=== PATIENT | female | born 1980 | race Caucasian/White ===

== ENCOUNTER 2021-02-24 19:18 | Inpatient (IN) | payer SELFPAY ==
[2021-02-24 19:25] VITALS: BP 120/82; PULSE 108; RESP 16; TEMP 36.5; O2SAT 97; BMI 27.4
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
--- NOTE | 2021-02-24 19:53 | PC.NURSE ---
pt sent her necklace home with her dad.
[2021-02-24 19:59] LABS: Basophils # 0.1 10^3/uL (0.0-0.1); Basophils % 0.9 %; Eosinophils # 0.1 10^3/uL (0.0-0.8); Eosinophils % 0.9 %; Hematocrit 41.6 % (37.0-47.0); Lymphocytes # 2.6 10^3/uL (0.8-4.8); Lymphocytes % 29.8 %; Mean Corpuscular HGB Conc 33.7 g/dL (30.0-36.0); Mean Corpuscular Hemoglobin 32.9 pg (28.0-34.0); Mean Corpuscular Volume 97.9 fL (81-99); Mean Platelet Volume 9.5 fL (7.4-10.4); Monocytes # 0.6 10^3/uL (0.2-0.9); Neutrophils # 5.27 10^3/uL (1.8-7.7); Neutrophils % 61.3 %; Nucleated Red Blood Cells % 0 %; Platelet Count 320 10^3/cmm (130-400); Red Blood Count 4.25 10^6/uL (4.1-5.3); Red Cell Distribution Width 15.5 % (12.1-15.1); White Blood Count 8.6 10^3/uL (4.0-10.0)
[2021-02-24 20:05] LABS: HCG Qualitative Urine. Negative (Negative)
[2021-02-24 20:15] LABS: Amphetamines Screen Urine Negative (Negative); Barbiturates Screen Urine Negative (Negative); Benzodiazepines Screen Urine Negative (Negative); Cocaine Screen Urine Negative (Negative); Opiate Screen Urine Negative (Negative); PCP Screen Urine Negative (Negative); THC Screen Urine Positive (Negative)
[2021-02-24 20:22] LABS: Acetaminophen < 5.0 ug/mL (10-30); Alanine Aminotransferase 15 U/L (0-33); Alcohol Level 281 mg/dL (0-10); Alkaline Phosphatase 72 IU/L (35-105); Anion Gap 13.4 (5-19); Aspartate Amino Transferase 27 U/L (0-32); Blood Urea Nitrogen 5 mg/dL (6-20); Calcium 8.2 mg/dL (8.5-10.5); Carbon Dioxide 25 mmol/L (22-29); Chloride 107 mmol/L (98-107); Creatinine Clr Calc Pharmacy 130.6962; Globulin 3.1 g/dL (1.3-4.6); Glomerular Filtration Rate 110.7 mL/min (90-130); Glucose 77 mg/dL (65-115); Osmolality Calculated 290 mOsm/kg (285-295); Potassium 3.4 mmol/L (3.5-5.1); Salicylate < 0.3 mg/dL (3-10); Sodium 142 mmol/L (136-145); Total Bilirubin 0.2 mg/dL (0.15-1.2); Total Protein 7.1 g/dL (6.6-8.7)
--- NOTE | 2021-02-24 21:11 | PC.NURSE ---
pt report called to Sienna BONNER in SBAR format.
--- NOTE | 2021-02-24 21:26 | PC.NURSE ---
pt's mother took belongings in two bags home. Pratibha in NPU notified
[2021-02-24 21:27] VITALS: BP 122/82; PULSE 93; RESP 18; TEMP 36.8; O2SAT 97
[2021-02-24] MEDS: hyDROXYzine 25 mg Capsule 50 MG PO (21:39)
[2021-02-24] MEDS: trazodone 50 mg Tablet PO (21:44)
[2021-02-24 22:00] VITALS: RESP 16
[2021-02-25 06:00] VITALS: BP 108/69; PULSE 87; RESP 17; TEMP 37.5; O2SAT 95
[2021-02-25] MEDS: multivitamin therapeutic Tablet 1 TAB PO (07:44)
[2021-02-25] MEDS: folic acid 1 mg Tablet PO (07:44)
[2021-02-25] MEDS: thiamine 100 mg Tablet PO (07:44)
[2021-02-25] MEDS: hyDROXYzine 25 mg Capsule 50 MG PO ×2 (11:51→22:00)
--- NOTE | 2021-02-25 11:52 | PC.NURSE ---
PRN VISTARIL 50 MG GIVEN PO PER PT C/O STATED ANXIETY. WILL CONT TO MONITOR.
[2021-02-25] MEDS: nicotine 21 mg Patch 1 PATCH TRANSDERMA (13:05)
[2021-02-25 14:00] VITALS: BP 105/72; PULSE 78; RESP 16; TEMP 36.9; O2SAT 90
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
[2021-02-25 22:00] VITALS: BP 105/72; PULSE 78; RESP 16; TEMP 36.9; O2SAT 98
[2021-02-25] MEDS: trazodone 50 mg Tablet PO (22:00)
--- NOTE | 2021-02-26 04:05 | PC.NURSE ---
Addendum entered by Ivy Awad LPN 02/26/21 04:55: reassessed pt @ 22:38 pt was asleep in bed, will continue to monitor until end of my shift Original Note: prn administered vistaril @ 22:00 for anxiety, administered trazadone 50mg Po for a sleeping aid also at 22:00
[2021-02-26 06:00] VITALS: BP 104/68; PULSE 88; RESP 16; TEMP 36.7; O2SAT 96
[2021-02-26] MEDS: folic acid 1 mg Tablet PO (08:49)
[2021-02-26] MEDS: multivitamin therapeutic Tablet 1 TAB PO (08:49)
[2021-02-26] MEDS: thiamine 100 mg Tablet PO (08:49)
[2021-02-26] MEDS: BuSPIRONE 10 mg Tablet 5 MG PO ×2 (08:49→20:33)
[2021-02-26] MEDS: nicotine 2 mg Gum BUCCAL ×3 (10:53→19:20)
--- NOTE | 2021-02-26 11:38 | PM.NPN ---
Subjective NPU Subjective: Interval history: Stacey presented today reporting that she is doing well compared to when she first came in. She had an opportunity to speak to her significant other and her mother and is really starting to get her bearings back as to what she can do overall. She is feeling more positive about the challenges that her head at her. She reports eating and sleeping better. Mental Status Exam MSE Comments: This is an overweight white female in hospital scrubs with adequate grooming and eye contact. No abnormal movements. Cooperative with exam in no acute distress. Speech was more normal rate and volume. Mood described as a little better , affect congruent. Thought process organized. Thought content: Patient denied suicidal or homicidal ideation, there were no delusions reported or noted, she denied any auditory or visual hallucinations. Attention concentration were intact and memory appeared reliable but none were formally tested. She is alert and oriented x3. Insight and judgment are fair, impulse control is improving. Vitals/I&O/Wt Last Vital Signs Temp 98.5 F 02/26/21 14:00 Pulse 75 02/26/21 14:00 Resp 18 02/26/21 14:00 BP 115/78 02/26/21 14:00 Pulse Ox 97 02/26/21 14:00 Data NPU : 02/24/21 19:49 02/24/21 19:49 A&P Additional A&P Information (1) Anxiety: (2) Partner relational problem: (3) Suicidal ideation: (4) Depression: (5) Adjustment disorder with mixed disturbance of emotions and conduct: (6) Cannabis abuse: (7) Alcohol abuse: Additional A&P Information This is a 40-year-old white female with a long history of trauma and mental health issues with limited treatment who presents with significant psychosocial stressors feeling overwhelmed and is feeling like her prescribed medications are ineffective and that she is unable to manage her current existence. 1. Continue current medication. 2. Continue every 15 minute checks for safety. 3. Encourage individual, group and milieu therapies. 4. Encourage sober living treatment after discharge at the highest level of care to which she is willing to commit. Involuntary Hold Information 96 Hour Hold: 96 Hour Involuntary Admission: No Attestations NPU Medical Necessity Statement*: Inpatient hospitalization is medically necessary and the clinically appropriate intervention at this time. We will monitor medications and make changes as indicated. Likely length of stay 1-3 days. Coding Level of Care Code Acute District Loss Prevention Manager for Gallito Santiago
[2021-02-26 14:00] VITALS: BP 115/78; PULSE 75; RESP 18; TEMP 36.9; O2SAT 97
[2021-02-26] MEDS: CLONazepam 0.5 mg Tablet 0.25 MG PO ×2 (14:44→23:23)
--- NOTE | 2021-02-26 14:44 | PC.NURSE ---
PRN KLONOPIN 0.25 MG GIVEN PO PER PT C/O STATED ANXIETY. WILL CONT TO MONITOR
[2021-02-26] MEDS: hyDROXYzine 25 mg Capsule 50 MG PO (21:01)
[2021-02-26 21:41] VITALS: BP 111/78; PULSE 76; RESP 20; TEMP 36.7; O2SAT 98
--- NOTE | 2021-02-26 21:57 | PC.NURSE ---
prn 21:01 Administered Vistaril 50mg PO for anxiety and also a sleep aid. 21:35 reassessed pt, pt reading laying on bed calm. will continue to monitor until end of my shift
[2021-02-26 22:00] VITALS: BP 111/78; PULSE 82; RESP 17; TEMP 37.1; O2SAT 98
--- NOTE | 2021-02-26 23:25 | PC.NURSE ---
PRN \Klonipin 0.25 mg po given for anxiety.
[2021-02-27 05:46] VITALS: BP 97/69; PULSE 60; RESP 16; TEMP 36.5; O2SAT 99
[2021-02-27] MEDS: folic acid 1 mg Tablet PO (08:33)
[2021-02-27] MEDS: BuSPIRONE 10 mg Tablet 5 MG PO (08:33)
[2021-02-27] MEDS: thiamine 100 mg Tablet PO (08:33)
[2021-02-27] MEDS: multivitamin therapeutic Tablet 1 TAB PO (08:33)
[2021-02-27] MEDS: nicotine 2 mg Gum BUCCAL (09:33)
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
[2021-02-27 10:08] VITALS: BP 97/69; PULSE 60; RESP 16; TEMP 36.5; O2SAT 99
== END 2021-02-27 11:05 | disposition home or self-care (01) | DRG 882 ==
LOC: ER 20:01 → NP 21:00
PROVIDERS: Admitting Provider Psychiatry & Neurology Psychiatry; Emergency Provider Emergency Medicine; PCP Family Medicine; Visit Provider Psychiatry & Neurology Psychiatry
DX: F43.25 Adjustment disorder with mixed disturbance of emotions and conduct (principal); R45.851 Suicidal ideations; F32.9 Major depressive disorder, single episode, unspecified; Z63.0 Problems in relationship with spouse or partner; F12.10 Cannabis abuse, uncomplicated; F10.10 Alcohol abuse, uncomplicated; F41.9 Anxiety disorder, unspecified; F17.210 Nicotine dependence, cigarettes, uncomplicated; Z81.8 Family history of other mental and behavioral disorders
CPT/HCPCS: 80053; 80306; 80307; 81025; 85025; 99285

== ENCOUNTER 2021-06-10 10:30 | Inpatient (IN) | payer SELFPAY ==
[2021-06-10 10:36] VITALS: BP 90/66; RESP 16; TEMP 36.9; O2SAT 98; BMI 26.6
--- NOTE | 2021-06-10 10:55 | W.ED.PSYCH ---
HPI - Psych General: Chief Complaint: Psychiatric Symptoms Stated Complaint: suicidal, homicidal Time Seen by Provider: 06/10/21 10:33 History of Present Illness: HPI Narrative: Ms. Aguirre is a 41-year-old lady with significant past medical history of depression and anxiety presents the emergency department due to suicidal ideation. She reports significantly increased social stressors including finding out that her has had a long-term affair. She has 3 children including one with complex medical care requirements. She has previously been hospitalized for suicidal ideation. She does have a history of suicide attempt by overdose and cutting wrists. Her current plan is to hang herself. Additionally she reports taking 0.5 tablets of Seroquel which she has not taken before. She has multiple medications prescribed however as she has not been able to get an appointment at [facility] she has been rationing . She reports associated fatigue and anxiety. Overall the course of symptoms has been worsening. The intensity is moderate to severe. She denies other new medical complaints, as such no exacerbating relieving factors identified. Review of Systems General: Reports: 10 or more systems reviewed and unremarkable except in HPI and below Narrative: CONSTITUTIONAL: denies fever, positive for generalized fatigue EYES - denies pain, denies loss of vision EARS - denies ear issues. NOSE - denies congestion or rhinorrhea. THROAT - denies sore throat or difficulty swallowing. CARDIOVASCULAR - denies chest pain and palpitations RESPIRATORY - denies shortness of breath and cough GASTROINTESTINAL - denies abdominal pain, no nausea vomiting, no changes in bowel habits GENITOURINARY - denies dysuria or urinary frequency MUSCULOSKELETAL- denies deformity or pain SKIN - denies rashes or new changed skin lesions NEUROLOGIC - denies focal weakness or sensory changes HEMATOLOGIC/LYMPHATIC - denies easy bruising or lymphadenopathy. PSYCH - .see HPI [facility] ED PFSH: Medical History (Updated 06/12/21 @ 07:19 by Jay Harvey MD) Adjustment disorder with mixed disturbance of emotions and conduct Female Reproductive History: Date of last menstrual period: 02/21/21 Physical Exam Narrative: EXAM NARRATIVE: GENERAL/CONSTITUTIONAL - well-appearing. No acute distress. Somewhat somnolent Eyes - PERRL, no conjunctival injection ENMT - Atraumatic external nose and ears. Moist mucous membranes NECK - supple. trachea midline CARDIOVASCULAR - regular rate and rhythm. Peripheral pulses 2+ and equal RESPIRATORY -clear to auscultation bilaterally. No retractions or accessory muscle use. ABDOMEN/GI - Nontender/Nondistended. No tenderness to percussion or evidence of peritonitis MSK - Extremities without obvious deformity or tenderness to palpation SKIN - Warm, Dry NEURO - alert and appropriately oriented. strength and sensation intact. Moves all extremities equally. PSYCH -depressed mood and affect. Course ED course: - Patient was seen and evaluated by me at bedside - Patient placed on cardiac monitors, IV access obtained - Initial evaluation notable for no acute distress, nontoxic appearance. Somewhat somnolent - Labs notable for no significant abnormality requiring intervention, alcohol level elevated. - Upon serial reexamination after treatment the patient was similar - Based on patient history, evaluation, labs, and imaging as interpreted the most likely cause of the patient's condition is suicidal ideation requiring further psychiatric care in the inpatient setting - The results of ED evaluation were discussed with the patient including plan for admission due to requirement for level of care not available if discharged to prevent significant worsening/deterioration. -Patient discussed with Dr. Harvey of the psychiatry service and patient to be admitted to psychiatry service after requested observation time for elevated alcohol level - Patient was admitted without further deterioration or significant events. Vital Signs: Vital signs: Vital Signs Temperature 98.1 F 06/12/21 06:00 Pulse Rate 66 06/12/21 06:00 Respiratory Rate 17 06/12/21 06:00 Blood Pressure 90/59 06/12/21 06:00 Pulse Oximetry 99 06/12/21 06:00 MDM - Psych Medical Records: Attestation: I reviewed the patient's medical records. Lab Data: Attestation: I reviewed the patient's lab results. Labs: Lab Results 06/10/21 06/10/21 06/10/21 Range/Units 11:24 11:24 11:24 WBC 4.4 (4.0-10.0) 10^3/ uL RBC 4.02 L (4.1-5.3) 10^6/u L Hgb 13.3 (11.5-15.3) g/dL Hct 39.7 (37.0-47.0) % MCV 98.8 (81-99) fl MCH 33.1 (28.0-34.0) pg MCHC 33.5 (30.0-36.0) g/dL RDW 18.2 H (12.1-15.1) % Plt Count 293 (130-400) 10^3/c mm MPV 9.6 (7.4-10.4) fL Neut % (Auto) 49.2 % Lymph % (Auto) 38.7 % [place] % (Auto) 8.7 % Eos % (Auto) 2.1 % Baso % (Auto) 1.1 % Neut # (Auto) 2.16 (1.8-7.7) 10^3/u L Lymph # (Auto) 1.7 (0.8-4.8) 10^3/u L Waller # (Auto) 0.4 (0.2-0.9) 10^3/u L Eos # (Auto) 0.1 (0.0-0.8) 10^3/u L Baso # (Auto) 0.1 (0.0-0.1) 10^3/u L Nucleated RBC % (a uto) 0 % Nucleated RBCs # 0.0 /100WBC Sodium 144 (136-145) mmol/L Potassium 4.0 (3.5-5.1) mmol/L Chloride 106 (98-107) mmol/L Carbon Dioxide 26 (22-29) mmol/L Anion Gap 16.0 (5-19) BUN 5 L (6-20) mg/dL Creatinine 0.5 (0.5-0.9) mg/dL GFR Calculation 136.0 H (90-130) mL/min Glucose 75 (65-115) mg/dL Calculated Osmolal ity 294 (285-295) mOsm/k g Calcium 8.5 (8.5-10.5) mg/dL Total Bilirubin 0.2 (0.15-1.2) mg/dL AST 22 (0-32) U/L ALT 13 (0-33) U/L Alkaline Phosphata se 69 (35-105) IU/L Total Protein 7.2 (6.6-8.7) g/dL Albumin 4.0 (3.5-5.2) g/dL Globulin 3.2 (1.3-4.6) g/dL HCG, Qual Negative (Negative) Salicylates < 0.3 L (3-10) mg/dL Urine Opiates Scre en (Negative) ng/mL Acetaminophen < 5.0 L (10-30) ug/mL Ur Barbiturates Sc reen (Negative) ng/mL Ur Phencyclidine S crn (Negative) ng/mL Ur Amphetamines Sc reen (Negative) ng/mL U Benzodiazepines Scrn (Negative) ng/mL Urine Cocaine Scre en (Negative) ng/mL U Marijuana (THC) Screen (Negative) ng/mL Ethyl Alcohol 298 H (0-10) mg/dL 06/10/21 Range/Units 11:29 WBC (4.0-10.0) 10^3/ uL RBC (4.1-5.3) 10^6/u L Hgb (11.5-15.3) g/dL Hct (37.0-47.0) % MCV (81-99) fl MCH (28.0-34.0) pg MCHC (30.0-36.0) g/dL RDW (12.1-15.1) % Plt Count (130-400) 10^3/c mm MPV (7.4-10.4) fL Neut % (Auto) % Lymph % (Auto) % Waller % (Auto) % Eos % (Auto) % Baso % (Auto) % Neut # (Auto) (1.8-7.7) 10^3/u L Lymph # (Auto) (0.8-4.8) 10^3/u L Waller # (Auto) (0.2-0.9) 10^3/u L Eos # (Auto) (0.0-0.8) 10^3/u L Baso # (Auto) (0.0-0.1) 10^3/u L Nucleated RBC % (a uto) % Nucleated RBCs # /100WBC Sodium (136-145) mmol/L Potassium (3.5-5.1) mmol/L Chloride (98-107) mmol/L Carbon Dioxide (22-29) mmol/L Anion Gap (5-19) BUN (6-20) mg/dL Creatinine (0.5-0.9) mg/dL GFR Calculation (90-130) mL/min Glucose (65-115) mg/dL Calculated Osmolal ity (285-295) mOsm/k g Calcium (8.5-10.5) mg/dL Total Bilirubin (0.15-1.2) mg/dL AST (0-32) U/L ALT (0-33) U/L Alkaline Phosphata se (35-105) IU/L Total Protein (6.6-8.7) g/dL Albumin (3.5-5.2) g/dL Globulin (1.3-4.6) g/dL HCG, Qual (Negative) Salicylates (3-10) mg/dL Urine Opiates Scre en Negative (Negative) ng/mL Acetaminophen (10-30) ug/mL Ur Barbiturates Sc reen Negative (Negative) ng/mL Ur Phencyclidine S crn Negative (Negative) ng/mL Ur Amphetamines Sc reen Negative (Negative) ng/mL U Benzodiazepines Scrn Negative (Negative) ng/mL Urine Cocaine Scre en Negative (Negative) ng/mL U Marijuana (THC) Screen Positive H (Negative) ng/mL Ethyl Alcohol (0-10) mg/dL EKG Data^: EKG 1: Attestation: I personally reviewed and interpreted this EKG as follows: EKG interpretation date: 06/10/21 EKG interpretation time: 11:35 Prior EKG tracings: not available for review Interpretation: Twelve-lead EKG shows a sinus rhythm at a rate of 81. ND interval 144. QRS duration 89. QTc 450 . Normal [place]. Interpretation: Sinus rhythm. Discharge Plan Discharge Patient Disposition: Admitted As Inpatient Admit Provider: Jay Harvey Coding Level of Care Code ED Flour Distributor for g Jack
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
--- NOTE | 2021-06-10 11:07 | ECG_ITS ---
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 Measurements Intervals [place] Rate: 81 P: 68 TN: 144 QRS: 63 QRSD: 89 T: 53 QT: 387 QTc: 450 Interpretive Statements SINUS RHYTHM POSSIBLE LEFT ATRIAL ENLARGEMENT [-0.1mV P-WAVE IN V1/V2] No previous ECG available for comparison Electronically Signed On 06-11-2021 9:04:18 CDT by Marisol Suazo M.D. [id number]
--- NOTE | 2021-06-10 11:23 | PC.PHAR ---
pt states she takes care of her own medications-pt states she still has buspirone and propranolol left last filled on 03/31/21-pt states she ran out of clonazepam but would like to have some more rx last filled on 03/31/21 15d/s-pt states she is not taking anything otc
[2021-06-10 11:30] LABS: Basophils # 0.1 10^3/uL (0.0-0.1); Basophils % 1.1 %; Eosinophils # 0.1 10^3/uL (0.0-0.8); Eosinophils % 2.1 %; Hematocrit 39.7 % (37.0-47.0); Hemoglobin 13.3 g/dL (11.5-15.3); Lymphocytes # 1.7 10^3/uL (0.8-4.8); Lymphocytes % 38.7 %; Mean Corpuscular HGB Conc 33.5 g/dL (30.0-36.0); Mean Corpuscular Hemoglobin 33.1 pg (28.0-34.0); Mean Corpuscular Volume 98.8 fl (81-99); Mean Platelet Volume 9.6 fL (7.4-10.4); Monocytes # 0.4 10^3/uL (0.2-0.9); Monocytes % 8.7 %; Neutrophils # 2.16 10^3/uL (1.8-7.7); Neutrophils % 49.2 %; Nucleated Red Blood Cells % 0 %; Platelet Count 293 10^3/cmm (130-400); Red Blood Count 4.02 10^6/uL (4.1-5.3); Red Cell Distribution Width 18.2 % (12.1-15.1); White Blood Count 4.4 10^3/uL (4.0-10.0)
[2021-06-10 11:44] LABS: HCG, Serum Qual Negative (Negative)
[2021-06-10 11:53] LABS: Alanine Aminotransferase 13 U/L (0-33); Alcohol Level 298 mg/dL (0-10); Alkaline Phosphatase 69 IU/L (35-105); Aspartate Amino Transferase 22 U/L (0-32); Blood Urea Nitrogen 5 mg/dL (6-20); Calcium 8.5 mg/dL (8.5-10.5); Carbon Dioxide 26 mmol/L (22-29); Chloride 106 mmol/L (98-107); Globulin 3.2 g/dL (1.3-4.6); Glucose 75 mg/dL (65-115); Osmolality Calculated 294 mOsm/kg (285-295); Sodium 144 mmol/L (136-145); Total Bilirubin 0.2 mg/dL (0.15-1.2); Total Protein 7.2 g/dL (6.6-8.7)
[2021-06-10 11:58] LABS: Acetaminophen < 5.0 ug/mL (10-30); Salicylate < 0.3 mg/dL (3-10)
[2021-06-10 13:22] LABS: Amphetamines Screen Urine Negative (Negative); Barbiturates Screen Urine Negative (Negative); Benzodiazepines Screen Urine Negative (Negative); Cocaine Screen Urine Negative (Negative); Opiate Screen Urine Negative (Negative); PCP Screen Urine Negative (Negative); THC Screen Urine Positive (Negative)
[2021-06-10 15:15] VITALS: RESP 16; TEMP 36.9; O2SAT 98
[2021-06-10] MEDS: hyDROXYzine 25 mg Capsule 50 MG PO ×2 (20:15→21:21)
[2021-06-10] MEDS: nicotine 2 mg Gum BUCCAL (21:21)
[2021-06-10] MEDS: trazodone 50 mg Tablet PO (21:21)
[2021-06-10 22:00] VITALS: BP 103/71; PULSE 90; RESP 18; TEMP 37; O2SAT 97
[2021-06-10] MEDS: LORazepam 2 mg Tablet PO (22:15)
[2021-06-11 06:00] VITALS: BP 82/59; PULSE 72; RESP 17; TEMP 36.8; O2SAT 98
[2021-06-11] MEDS: multivitamin therapeutic Tablet 1 TAB PO (09:25)
[2021-06-11] MEDS: folic acid 1 mg Tablet PO (09:25)
[2021-06-11] MEDS: thiamine 100 mg Tablet PO (09:25)
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
[2021-06-11 14:00] VITALS: BP 136/86; PULSE 86; RESP 15; TEMP 36.9; O2SAT 98
[2021-06-11] MEDS: nicotine 2 mg Gum BUCCAL ×2 (16:08→22:30)
[2021-06-11] MEDS: OLANZapine 5 mg ODT PO (17:18)
--- NOTE | 2021-06-11 17:18 | PC.NURSE ---
PRN ZYDIS Patient requested medication for anxiety. Given 5 mg po Zyprexa Zydis.
[2021-06-11] MEDS: CLONazepam 0.5 mg Tablet 0.25 MG PO (21:30)
[2021-06-11] MEDS: quetiapine 25 mg Tablet 50 MG PO (21:33)
[2021-06-11] MEDS: trazodone 50 mg Tablet PO (21:34)
[2021-06-11 22:00] VITALS: BP 110/81; PULSE 111; RESP 18; TEMP 36.7; O2SAT 97
[2021-06-12 06:00] VITALS: BP 90/59; PULSE 66; RESP 17; TEMP 36.7; O2SAT 99
[2021-06-12] MEDS: BuSPIRONE 10 mg Tablet 5 MG PO ×2 (08:35→17:21)
[2021-06-12] MEDS: thiamine 100 mg Tablet PO (08:35)
[2021-06-12] MEDS: folic acid 1 mg Tablet PO (08:35)
[2021-06-12] MEDS: multivitamin therapeutic Tablet 1 TAB PO (08:35)
--- NOTE | 2021-06-12 11:24 | P.PN_ITS ---
Subjective NPU Subjective: Interval history: I met with the patient in her room with the door open. She says her anxiety is 5/10 in severity, worrying about her mother and sister visiting because they want her to feel her emotions, and she is trying to avoid feeling them. She rates her depression at 10/10 in severity, and gets tearful talking about it. She said she slept much better last night with the Seroquel. It took 20 minutes to fall asleep and she had dreams for the first time in a long time. No grogginess when she woke up. No other medication side effects. She says, I feel better with meds in my system. It turns out she has not been taking her medication because she cannot get organized enough to remember to take it. She would like to use a pillbox when she gets back home again this time. She denies suicidal and homicidal ideation. No auditory or visual hallucinations. She has no cravings for alcohol or drugs. We talked some about her disposition. She is going to stay with her sister because, it is a good home environment. She says that before she came in she was just pretending I was okay. We talked as well about her kids who are aged 15-1/2, 17-1/2, and 19. The oldest child is nonverbal and violent due to autism spectrum disorder. We talked about medication. I recommended that she try an antidepressant, since her depression is so intense. I recommended Zoloft 25 mg daily, even though Celexa had made her skin crawl. She understands that there is a risk that this could happen again, but also potential benefit that it will provide antidep ressant coverage without any side effects. She also knows that she can take Zyprexa Zydis as needed for anxiety while here. Mental Status Exam MSE Comments: I met with the patient in her room with the door open, and she was dressed in hospital scrubs and appropriately groomed. She was more emotionally regulated today, but became tearful when talking about how depressed she feels. Eye contact is good. Speech is at a normal volume, good articulation, not pressured. Alert, oriented to person, place, time, situation. Attention and concentration were intact. Memory is intact. Mood is depressed and anxious. Affect is tearful to pleasant. Thought process is logical and goal-directed. Thought content: Denies auditory and visual hallucinations. No delusions or paranoia are noted. She has had suicidal ideation, and homicidal ideation. She says she will not try to hurt her self in the hospital. She has no intention of harming others. Insight and judgment appear to be fair. Impulse control is fair as well. She feels she might not be able to control her impulses to hurt her self outside of the structure of the hospital. Vitals/I&O/Wt Last Vital Signs Temp 98.1 F 06/12/21 06:00 Pulse 66 06/12/21 06:00 Resp 17 06/12/21 06:00 BP 90/59 06/12/21 06:00 Pulse Ox 99 06/12/21 06:00 Weight last 48 hrs Weight 74.843 kg Data NPU : 06/10/21 11:24 06/10/21 11:24 A&P Assessment and plan (1) Major depressive disorder, recurrent severe without psychotic features: Status: Acute (2) Alcohol abuse: Status: Acute (3) Cannabis abuse: Status: Acute (4) Partner relational problem: Status: Acute (5) Anxiety: Status: Acute Additional A&P Information Stacey Aguirre is a 41 year old female with a history of depression and anxiety, who was admitted for treatment of depression and suicidal ideation. She has been drinking fairly heavily as well. RECOMMENDATION AND PLAN: 1. Add Zoloft 25 mg daily for depression and anxiety. She is now on Seroquel 50 mg at bedtime for insomnia, which can be repeated once if still not asleep. It was helpful last night. No side effects. 2. Continue every 15 minute checks for safety. 3. Encourage individual, group and milieu therapies. 4. Encourage sober living treatment after discharge at the highest level of care to which he is willing to commit. Involuntary Hold Information 96 Hour Hold: 96 Hour Involuntary Admission: Yes 96 Hour Hold Ending Date: 06/17/21 96 Hour Hold Ending Time: 12:30 Attestations NPU Medical Necessity Statement*: Psychiatric hospitalization is medically necessary to prevent access to lethal means, to reevaluate medication, and to coordinate a safe discharge. Likely length of stay is 2 to 4 days. Coding Level of Care Code Acute Metal Engineering Process Worker for Heidi Jack Diagnoses Major depressive disorder, recurrent severe without psychotic features F33.2 Alcohol abuse F10.10 Cannabis abuse F12.10 Partner relational problem Z63.0 Anxiety F41.9
[2021-06-12] MEDS: OLANZapine 5 mg ODT PO ×2 (12:11→18:07)
[2021-06-12] MEDS: nicotine 2 mg Gum BUCCAL ×3 (12:11→23:10)
[2021-06-12] MEDS: sertraline 50 mg Tablet 25 MG PO (13:00)
[2021-06-12 14:00] VITALS: BP 112/67; PULSE 88; RESP 18; TEMP 36.8; O2SAT 97
[2021-06-12 19:57] VITALS: BP 106/70; PULSE 94; RESP 17; TEMP 36.9; O2SAT 97
[2021-06-12] MEDS: hyDROXYzine 25 mg Capsule 50 MG PO (21:31)
[2021-06-12] MEDS: quetiapine 25 mg Tablet 50 MG PO (21:31)
--- NOTE | 2021-06-12 21:35 | PC.NURSE ---
pt requested anxiety med. Vistaril 50mg po given.
[2021-06-12] MEDS: CLONazepam 0.5 mg Tablet 0.25 MG PO (22:24)
--- NOTE | 2021-06-12 22:25 | PC.NURSE ---
pt continues with increased anxiety. came to desk requesting anxiety med. klonopin 0.25mg po given.
[2021-06-12] MEDS: LORazepam 2 mg Tablet PO (23:59)
--- NOTE | 2021-06-13 00:09 | PC.NURSE ---
pt continues with increased anxiety. scores 11 on CIWA protocol, ativan 2mg po given.
--- NOTE | 2021-06-13 01:16 | PC.NURSE ---
pt continues awake, but resting quietly in her room.
[2021-06-13 06:00] VITALS: BP 106/70; PULSE 94; RESP 17; TEMP 36.9; O2SAT 97; BMI 26.6
[2021-06-13] MEDS: thiamine 100 mg Tablet PO (09:58)
[2021-06-13] MEDS: multivitamin therapeutic Tablet 1 TAB PO (09:58)
[2021-06-13] MEDS: sertraline 50 mg Tablet 25 MG PO (09:58)
[2021-06-13] MEDS: folic acid 1 mg Tablet PO (09:58)
[2021-06-13] MEDS: BuSPIRONE 10 mg Tablet 5 MG PO ×3 (09:59→21:18)
--- NOTE | 2021-06-13 10:02 | PC.NURSE ---
Patient refused Zoloft after opening the package. Wasted in the Pyxis
[2021-06-13] MEDS: nicotine 2 mg Gum BUCCAL ×2 (12:03→21:26)
[2021-06-13] MEDS: hyDROXYzine 25 mg Capsule 50 MG PO (12:03)
[2021-06-13 14:00] VITALS: BP 107/70; PULSE 80; RESP 14; TEMP 36.8; O2SAT 98
[2021-06-13] MEDS: CLONazepam 0.5 mg Tablet 0.25 MG PO ×2 (14:49→21:17)
--- NOTE | 2021-06-13 17:00 | P.PN_ITS ---
Subjective NPU Subjective: Interval history: The patient says that things have been rough, and she has been experiencing anxiety, depression, and overwhelming sadness. She says that her mother and roommate visited, and they made me feel better. Her roommate told her that she would hold her room for her as long as she needed, and the patient's mother said she could stay with her as long as she needed. She felt very supported by the statements. She says she had restless legs from Zoloft, so refused to take it this morning. I told her I plan to discontinue it because of the side effect. She likes the Zyprexa and Klonopin, both of which help her calm down. She also feels that BuSpar is helpful, so we will increase it from 2 times a day to 3 times daily. She wanted to make sure she had taken the Seroquel last night, because she was not sure that is what she got. She had a harder time sleeping last night than she did before. She says she feels very hopeless and down on herself, but does not currently feel suicidal. She denies auditory and visual hallucinations. Mental Status Exam MSE Comments: I met with the patient in her room with the door open, and she was dressed in hospital scrubs and appropriately groomed. She was more emotionally regulated today, but quite hopeless. Eye contact is fair. Speech is at a normal volume, good articulation, not pressured. Alert, oriented to person, place, time, situation. Attention and concentration were intact. Memory is intact. Mood is depressed and anxious. Affect is tearful to pleasant. Thought process is logical and goal-directed. Thought content: Denies auditory and visual hallucinations. No delusions or paranoia are noted. She has had suicidal ideation, and homicidal ideation. She says she will not try to hurt her self in the hospital. She has no intention of harming others. Insight and judgment appear to be fair. Impulse control is fair as well. She feels she might not be able to control her impulses to hurt her self outside of the structure of the hospital. Vitals/I&O/Wt Last Vital Signs Temp 98.4 F 06/13/21 06:00 Pulse 94 06/13/21 06:00 Resp 17 06/13/21 06:00 BP 106/70 06/13/21 06:00 Pulse Ox 97 06/13/21 06:00 Weight last 48 hrs Weight 74.843 kg Data NPU : 06/10/21 11:24 06/10/21 11:24 A&P Assessment and plan (1) Major depressive disorder, recurrent severe without psychotic features: Status: Acute (2) Alcohol abuse: Status: Acute (3) Cannabis abuse: Status: Acute (4) Partner relational problem: Status: Acute (5) Anxiety: Status: Acute Additional A&P Information Stacey Aguirre is a 41 year old female with a history of depression and anxiety, who was admitted for treatment of depression and suicidal ideation. She has been drinking fairly heavily as well. RECOMMENDATION AND PLAN: 1. Medication changes: * Increase Buspirone to 5 mg three times a day. Pts consents * Stop Zoloft due to restless legs * Stop prns that aren't in use: diphenhydramine, hydroxyzine, haloperidol * She is now on Seroquel 50 mg at bedtime for insomnia, which can be repeated once if still not asleep. 2. Continue every 15 minute checks for safety. 3. Encourage individual, group and milieu therapies. 4. Encourage sober living treatment after discharge at the highest level of care to which he is willing to commit. Involuntary Hold Information 96 Hour Hold: 96 Hour Involuntary Admission: Yes 96 Hour Hold Ending Date: 06/17/21 96 Hour Hold Ending Time: 12:30 Attestations NPU Medical Necessity Statement*: Psychiatric hospitalization is medically necessary to prevent access to lethal means, to reevaluate medication, and to coordinate a safe discharge. Likely length of stay is 2 to 3 days. Coding Level of Care Code Acute Relocation Specialist for Gallito Santiago Diagnoses Major depressive disorder, recurrent severe without psychotic features F33.2 Alcohol abuse F10.10 Cannabis abuse F12.10 Partner relational problem Z63.0 Anxiety F41.9
[2021-06-13] MEDS: OLANZapine 5 mg ODT PO (18:50)
--- NOTE | 2021-06-13 18:50 | PC.NURSE ---
Administered Zyprexa Zydis 5mg sublingual for increasing anxiety. Will monitor for medication effectiveness.
[2021-06-13] MEDS: quetiapine 25 mg Tablet 50 MG PO ×2 (21:17→22:46)
--- NOTE | 2021-06-13 21:25 | PC.NURSE ---
pt requested PRN Clonazpam with HS meds, Clonazapam 0.25mg given.
[2021-06-13 21:26] VITALS: BP 106/70; PULSE 78; RESP 82; TEMP 36.6; O2SAT 97
--- NOTE | 2021-06-13 22:50 | PC.NURSE ---
pt came to the desk stating that the Dr told her that if after so long you still can't sleep, i'll put an extra seroquel 50mg po PRN on my med list . medication is available, so additional seroquel 50mg po given.
[2021-06-14] MEDS: nicotine 2 mg Gum BUCCAL ×4 (00:08→22:33)
[2021-06-14] MEDS: OLANZapine 5 mg ODT PO ×3 (02:50→17:39)
--- NOTE | 2021-06-14 02:51 | PC.NURSE ---
pt states still unable to rest. states she thinks one of her meds in the capsules is having the opposite affect on her. Zyprexa zydis 5mg po given.
[2021-06-14 06:00] VITALS: BP 86/50; PULSE 76; RESP 14; TEMP 36.9; O2SAT 96
[2021-06-14] MEDS: BuSPIRONE 10 mg Tablet 5 MG PO ×3 (08:50→22:06)
[2021-06-14] MEDS: folic acid 1 mg Tablet PO (08:50)
[2021-06-14] MEDS: thiamine 100 mg Tablet PO (08:50)
[2021-06-14] MEDS: multivitamin therapeutic Tablet 1 TAB PO (08:50)
--- NOTE | 2021-06-14 13:00 | PC.NURSE ---
Patient at the nurses station asking for something for anxiety. PRN Zyprexa administered.
[2021-06-14 13:49] VITALS: BP 98/49; PULSE 73; RESP 17; TEMP 36.9; O2SAT 96
--- NOTE | 2021-06-14 17:43 | P.PN_ITS ---
Subjective NPU Subjective: Interval history: I met first with the patient's mother, who gave a background and history that was largely consistent with with the patient has told me. Her mother wanted me to know that she was very supportive of the patient and would do what she could to help her. The patient says that she had trouble sleeping last night and was up at 3 and 4 AM. Her mood is slightly better, but her depression is still 8/10 in severity and anxiety is 5/10 in severity. She denies suicidal and homicidal ideation. She denies auditory and visual hallucinations. She denies side effects of the medication. She says the Zydis helps her anxiety. I recommended increasing Seroquel to 100 mg at bedtime for insomnia, since she had such trouble sleeping last night. She agreed to the change. We talked a bit about how she is handling her situation. She is tired of feeling the way she does. I said I had heard her on the phone, and she sounded quite angry. She talked about her partner asking for support, but not acknowledging all of the turmoil and chaos she has caused. I recommended the book Stop Caretaking The Borderline or Narcissist. She thought that sounded interesting. She had questions about bipolar disorder, which her mother thinks she has. She has not had discrete manic episodes, but does have unstable mood. We talked about emotional dysregulation and compared that to the discrete manic and depressive moods of bipolar disorder. I also talked about Dialectic Behavior Therapy, and how it might apply to her. She is eager to look into it, and to follow-up at [facility]. Mental Status Exam MSE Comments: I met with the patient in her room with the door open, and she was dressed in hospital scrubs and appropriately groomed. She was more emotionally regulated today, and feeling more hopeful. Eye contact is improved. Speech is at a normal volume, good articulation, not pressured. Alert, oriented to person, place, time, situation. Attention and concentration were intact. Memory is intact. Mood is depressed and anxious. Affect is more stable he pleasant. Thought process is logical and goal-directed. Thought content: Denies auditory and visual hallucinations. No delusions or paranoia are noted. No suicidal or homicidal ideation. Insight and judgment appear to be fair. Impulse control is fair as well. Vitals/I&O/Wt Last Vital Signs Temp 98.5 F 06/14/21 13:49 Pulse 73 06/14/21 13:49 Resp 17 06/14/21 13:49 BP 98/49 06/14/21 13:49 Pulse Ox 96 06/14/21 13:49 Weight last 48 hrs Weight 74.843 kg Data NPU : 06/10/21 11:24 06/10/21 11:24 A&P Additional A&P Information Stacey Aguirre is a 41 year old female with a history of depression and anxiety, who was admitted for treatment of depression and suicidal ideation. She has been drinking fairly heavily as well. RECOMMENDATION AND PLAN: 1. Medication changes: * Increase Seroquel to 100 mg at bedtime, and repeat with 100 mg in an hour if not asleep. * Increase Buspirone to 5 mg three times a day. Pts consents * Stop Zoloft due to restless legs * Stop prns that aren't in use: diphenhydramine, hydroxyzine, haloperidol 2. Continue every 15 minute checks for safety. 3. Encourage individual, group and milieu therapies. 4. Encourage sober living treatment after discharge at the highest level of care to which he is willing to commit. Involuntary Hold Information 96 Hour Hold: 96 Hour Involuntary Admission: Yes 96 Hour Hold Ending Date: 06/17/21 96 Hour Hold Ending Time: 12:30 Attestations NPU Medical Necessity Statement*: Psychiatric hospitalization is medically necessary to prevent access to lethal means, to reevaluate medication, and to coordinate a safe discharge. Likely length of stay is 1 to 2 days. Coding Level of Care Code Acute Broommaking Supervisor for [facility]
[2021-06-14 20:18] VITALS: BP 99/66; PULSE 94; RESP 17; TEMP 37.4; O2SAT 95
[2021-06-14] MEDS: quetiapine 100 mg Tablet PO ×2 (22:05→22:06)
[2021-06-15] MEDS: OLANZapine 5 mg ODT PO ×3 (01:59→21:18)
[2021-06-15 06:00] VITALS: BP 90/58; PULSE 73; RESP 17; TEMP 36.6; O2SAT 95
[2021-06-15] MEDS: folic acid 1 mg Tablet PO (09:09)
[2021-06-15] MEDS: thiamine 100 mg Tablet PO (09:09)
[2021-06-15] MEDS: multivitamin therapeutic Tablet 1 TAB PO (09:09)
[2021-06-15] MEDS: propranolol 20 mg Tablet PO (09:09)
[2021-06-15] MEDS: BuSPIRONE 10 mg Tablet 5 MG PO ×3 (09:09→21:18)
[2021-06-15] MEDS: nicotine 2 mg Gum BUCCAL ×2 (11:52→16:06)
--- NOTE | 2021-06-15 12:24 | PC.NURSE ---
Zyprexa Zydis 5mg sublingual administered for patient c/o of increasing anxiety. Will monitor for medication effectiveness.
[2021-06-15 14:00] VITALS: BP 108/63; PULSE 86; RESP 20; TEMP 36.7; O2SAT 97
--- NOTE | 2021-06-15 19:10 | P.PN_ITS ---
Subjective NPU Subjective: Interval history: The patient says that her mood is better. She did get irritated by a man who is psychotic and was shuffling his feet and making squeaky noises on the floor. She confronted him about this, which was good assertiveness but not very good judgment. She says with the buspirone she feels more normal and has relief inside. On the other hand, she still had trouble sleeping on Seroquel 100 mg. We discussed increasing to 200 mg, and she consents to the change. We talked about her discharge plans. She is going to go to her sister's house, and is happy about that because her sister has a craft room. She is planning on doing some golfing with her mother. She is committed to taking her medications, and her sister will help her organize her meds and make sure she takes them. Mental Status Exam MSE Comments: I met with the patient in her room with the door open, and she was dressed in hospital scrubs and appropriately groomed. She was fairly emotionally regulated today. Eye contact is good. Speech is at a normal volume, good articulation, not pressured. Alert, oriented to person, place, time, situation. Attention and concentration were intact. Memory is intact. Mood is depressed and anxious. Affect is more stable and pleasant. Thought process is logical and goal-directed. Thought content: Denies auditory and visual hallucinations. No delusions or paranoia are noted. No suicidal or homicidal ideation. Insight and judgment appear to be fair. Impulse control is fair as well. Vitals/I&O/Wt Last Vital Signs Temp 98.6 F 06/16/21 06:00 Pulse 82 06/15/21 22:00 Resp 17 06/16/21 06:00 BP 131/77 06/15/21 22:00 Pulse Ox 97 06/15/21 22:00 Data NPU : 06/10/21 11:24 06/10/21 11:24 A&P Assessment and plan (1) Major depressive disorder, recurrent severe without psychotic features: Status: Acute (2) Alcohol abuse: Status: Acute (3) Cannabis abuse: Status: Acute (4) Partner relational problem: Status: Acute (5) Anxiety: Status: Acute Additional A&P Information Stacey Aguirre is a 41 year old female with a history of depression and anxiety, who was admitted for treatment of depression and suicidal ideation. She has been drinking fairly heavily as well. RECOMMENDATION AND PLAN: 1. Medication changes: Increase Seroquel to 200 mg at bedtime, and repeat with 100 mg in an hour if not asleep. Continue buspirone to 5 mg three times a day. Stopped Zoloft due to restless legs. Patient is quite nervous about taking antidepressants, for some reason. We will hold off on prescribing antidepressants for the time being. Stop prns that aren't in use: diphenhydramine, hydroxyzine, haloperidol 2. Continue every 15 minute checks for safety. 3. Encourage individual, group and milieu therapies. 4. Encourage sober living treatment after discharge at the highest level of care to which she is willing to commit. Involuntary Hold Information 96 Hour Hold: 96 Hour Involuntary Admission: Yes 96 Hour Hold Ending Date: 06/17/21 96 Hour Hold Ending Time: 12:30 Attestations NPU Medical Necessity Statement*: Psychiatric hospitalization is medically necessary to prevent access to lethal means, to reevaluate medication, and to coordinate a safe discharge. Likely length of stay is 1 to 2 days. Coding Level of Care Code Acute Manager Philosophy for [facility] Fwd Diagnoses Major depressive disorder, recurrent severe without psychotic features F33.2 Alcohol abuse F10.10 Cannabis abuse F12.10 Partner relational problem Z63.0 Anxiety F41.9
[2021-06-15] MEDS: quetiapine 100 mg Tablet 200 MG PO (21:18)
[2021-06-15] MEDS: quetiapine 100 mg Tablet PO (21:18)
--- NOTE | 2021-06-15 21:20 | PC.NURSE ---
pt requested extra Seroquel and anxiety med. Seroquel 100mg po and zyprexa zydis 5mg po given.
[2021-06-15 22:00] VITALS: BP 131/77; PULSE 82; RESP 16; TEMP 36.9; O2SAT 97
[2021-06-16] MEDS: nicotine 2 mg Gum BUCCAL (00:08)
--- NOTE | 2021-06-16 00:43 | PC.NURSE ---
pm aSSESSMENT PT IS COOPERATIVE WITH STAFF, STATES SHE IS HAVING A DIFFICULT TIME GETTING TO SLEEP EVEN WITH THE INCREASE OF SEROQUEL. pT IS UP AT MIDNIGHT, SLEPT ABOUT 2 HOURS EARLIER IN THE EVENING, SHE WOULD LIKE HELP WITH HER MEDICATIONS TO SEE IF THEY ARE CAUSING THE INCREASED INSOMNIA SHE IS EXPERIENCING, DENIES PAIN, DENIES SI/HI, DENIES AVH, BUT STATES SHE IS STILL DEPRESSED.
[2021-06-16] MEDS: OLANZapine 5 mg ODT PO ×2 (00:57→21:57)
[2021-06-16 06:00] VITALS: RESP 17; TEMP 37
[2021-06-16] MEDS: multivitamin therapeutic Tablet 1 TAB PO (08:28)
[2021-06-16] MEDS: folic acid 1 mg Tablet PO (08:28)
[2021-06-16] MEDS: thiamine 100 mg Tablet PO (08:28)
[2021-06-16] MEDS: nicotine 21 mg Patch 1 PATCH TRANSDERMA (08:28)
[2021-06-16] MEDS: BuSPIRONE 10 mg Tablet 5 MG PO ×3 (08:28→21:57)
[2021-06-16] MEDS: propranolol 20 mg Tablet PO (11:48)
--- NOTE | 2021-06-16 11:49 | PC.NURSE ---
PRN INDERAL 20 MG GIVEN PO PER PT C/O STATED ANXIETY
[2021-06-16 14:00] VITALS: BP 105/72; PULSE 82; RESP 17; TEMP 37.1; O2SAT 97
--- NOTE | 2021-06-16 14:10 | PM.NPN ---
Subjective NPU Subjective: Interval history: We talked about the patient's decision to file for divorce. She has spoken with her vp cardiovascular service line and found out the details. She feels she is thinking more clearly about these things. However she feels like she is a failure and became quite tearful when talking about this. She rates her depression at 5/10 in severity still. We reviewed her coping skills which she has been learning and also talked some about DBT which I had recommended to her. She was not able to sleep on Seroquel last night, at even after 300 mg. We talked about increasing the dose to 400 mg, and she consents to that change. She does denies suicidal and homicidal ideation. No auditory or visual hallucinations. Mental Status Exam MSE Comments: I met with the patient in her room with the door open, and she was dressed in hospital scrubs and appropriately groomed. I met with her and her mother a little while later in the day room. She calm, cooperative, alert, and made good eye contact. Speech is at a normal volume, good articulation, not pressured. Alert, oriented to person, place, time, situation. Attention and concentration were intact. Memory is intact. Mood is depressed but less anxious. Affect is more stable and pleasant. Thought process is logical and goal-directed. Thought content: Denies auditory and visual hallucinations. No delusions or paranoia are noted. No suicidal or homicidal ideation. Insight and judgment appear to be fair. Impulse control is fair as well. Vitals/I&O/Wt Last Vital Signs Temp 98.6 F 06/16/21 06:00 Pulse 82 06/15/21 22:00 Resp 17 06/16/21 06:00 BP 131/77 06/15/21 22:00 Pulse Ox 97 06/15/21 22:00 Data NPU : 06/10/21 11:24 06/10/21 11:24 A&P Assessment and plan (1) Major depressive disorder, recurrent severe without psychotic features: Status: Acute (2) Alcohol abuse: Status: Acute (3) Cannabis abuse: Status: Acute (4) Partner relational problem: Status: Acute (5) Anxiety: Status: Acute Additional A&P Information Stacey Aguirre is a 41 year old female with a history of depression and anxiety, who was admitted for treatment of depression and suicidal ideation. She has been drinking fairly heavily as well. RECOMMENDATION AND PLAN: 1. Medication changes: Increase Seroquel to 400 mg at bedtime, and repeat with 100 mg in an hour if not asleep. Continue buspirone to 5 mg three times a day. Stopped Zoloft due to restless legs. Patient is quite nervous about taking antidepressants, for some reason. We will hold off on prescribing antidepressants for the time being. Stop prns that aren't in use: diphenhydramine, hydroxyzine, haloperidol 2. Continue every 15 minute checks for safety. 3. Encourage individual, group and milieu therapies. 4. Encourage sober living treatment after discharge at the highest level of care to which she is willing to commit. Involuntary Hold Information 96 Hour Hold: 96 Hour Involuntary Admission: Yes 96 Hour Hold Ending Date: 06/17/21 96 Hour Hold Ending Time: 12:30 Attestations NPU Medical Necessity Statement*: Psychiatric hospitalization is medically necessary to prevent access to lethal means, to reevaluate medication, and to coordinate a safe discharge. Likely discharge tomorrow. Coding Level of Care Code Acute Medical Front Desk Coordinator for [facility] Fwd Diagnoses Major depressive disorder, recurrent severe without psychotic features F33.2 Alcohol abuse F10.10 Cannabis abuse F12.10 Partner relational problem Z63.0 Anxiety F41.9
[2021-06-16] MEDS: CLONazepam 0.5 mg Tablet 0.25 MG PO (17:28)
--- NOTE | 2021-06-16 17:29 | PC.NURSE ---
PRN KLONOPIN 0.25 MG GIVEN PO PER PT C/O ANXIETY. PT UPSET AT HER , TEARFUL AFTER SEVERAL PHONE CALLS WITH HER. WILL CONT TO MONITOR
[2021-06-16 20:00] VITALS: BP 101/68; PULSE 85; RESP 16; TEMP 36.9; O2SAT 98
[2021-06-16] MEDS: quetiapine 100 mg Tablet 400 MG PO (21:56)
[2021-06-16 22:00] VITALS: BP 101/68; PULSE 85; RESP 16; TEMP 36.9; O2SAT 98
[2021-06-17] MEDS: haloperidol 5 mg Tablet PO (01:08)
[2021-06-17] MEDS: CLONazepam 0.5 mg Tablet 0.25 MG PO (01:08)
--- NOTE | 2021-06-17 05:14 | PC.NURSE ---
PRN Administered Zydis @ 2157 for anxiety Administered Haldol 5mg @ 0108 to help with sleep and agitation and anxiety, also administered Klonopin 0.5mg at this time. Pt was having a hard time going to sleep tonight, pt stated that her mind just wouldn't shut down. will continue to monitor pt.
[2021-06-17 06:00] VITALS: BP 99/62; PULSE 69; RESP 16; TEMP 36.8; O2SAT 96
[2021-06-17] MEDS: multivitamin therapeutic Tablet 1 TAB PO (08:21)
[2021-06-17] MEDS: folic acid 1 mg Tablet PO (08:21)
[2021-06-17] MEDS: BuSPIRONE 10 mg Tablet 5 MG PO (08:21)
[2021-06-17] MEDS: thiamine 100 mg Tablet PO (08:21)
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
[2021-06-17 13:19] VITALS: BP 99/62; PULSE 69; RESP 16; TEMP 36.8; O2SAT 96
== END 2021-06-17 13:40 | disposition home or self-care (01) | DRG 885 ==
LOC: ER 13:12 → NP 13:50
PROVIDERS: Physician Assistant; Admitting Provider Psychiatry & Neurology Child & Adolescent Psychiatry; Emergency Provider Emergency Medicine; PCP Family Medicine; Visit Provider Psychiatry & Neurology Child & Adolescent Psychiatry
DX: F33.2 Major depressive disorder, recurrent severe without psychotic features (principal); R45.851 Suicidal ideations; F43.25 Adjustment disorder with mixed disturbance of emotions and conduct; R45.850 Homicidal ideations; F41.9 Anxiety disorder, unspecified; Z91.5 Personal history of self-harm; F10.10 Alcohol abuse, uncomplicated; F12.10 Cannabis abuse, uncomplicated; F17.210 Nicotine dependence, cigarettes, uncomplicated; Z63.0 Problems in relationship with spouse or partner
CPT/HCPCS: 80053; 80306; 80307; 84703; 85025; 93005; 99285

== ENCOUNTER → 2022-05-04 10:16 | Outpatient (BNVA) | payer OTHER, SELFPAY | PROVIDERS: PCP Family Medicine; Visit Provider Nurse Practitioner Psychiatric/Mental Health | DX: Z79.899 Other long term (current) drug therapy (principal) | CPT/HCPCS: 80053; 80061; 83036 ==